=== PATIENT | female | born 1945 | race Two or more races ===

== ENCOUNTER → 2016-08-31 | Outpatient (REF) | payer MEDICARE ==
[2016-08-31 22:00] LABS: MICROSCOPIC INDICATED? MAN YES (NO)
[2016-08-31 22:31] LABS: BACTERIA, URINE NONE SEEN; HYALINE CAST, URINE NONE SEEN /lpf (0-1); SQUAMOUS EPITHELIAL CELL URINE MOD AMOUNT /hpf (SMALL AMT); WBC, URINE NONE SEEN /hpf (0-3)
[2016-08-31 22:34] LABS: MICROSCOPIC EXAM PERFORMED
== END ==
LOC: M SMT 17:27
PROVIDERS: ATTEND Nurse Practitioner Women's Health
DX: Z85.51 Personal history of malignant neoplasm of bladder (principal); F17.210 Nicotine dependence, cigarettes, uncomplicated; Z79.899 Other long term (current) drug therapy
CPT/HCPCS: 81000; 87086; G0463

== ENCOUNTER → 2016-11-06 | Outpatient (REF) | payer MEDICARE | LOC: M SMT 14:43 | PROVIDERS: ATTEND Urology | DX: Z08 Encounter for follow-up examination after completed treatment for malignant neoplasm (principal); Z85.51 Personal history of malignant neoplasm of bladder; Z79.899 Other long term (current) drug therapy ==

== ENCOUNTER → 2017-11-19 | Outpatient (REF) | payer MEDICARE | LOC: M SMT 17:05 | DX: Z85.51 Personal history of malignant neoplasm of bladder (principal) | CPT/HCPCS: 88108 ==

== ENCOUNTER → 2018-05-15 | Outpatient (REF) | payer MEDICARE ==
[2018-05-15 18:43] LABS: APPEARANCE, URINE CLEAR (CLEAR); BACTERIA, URINE AUTO NEGATIVE (NEGATIVE); BILIRUBIN, URINE AUTO NEGATIVE (NEGATIVE); BLOOD, URINE BLOOD 1+ (NEGATIVE); COLOR, URINE YELLOW (YELLOW); GLUCOSE, URINE (UA) AUTO NEGATIVE (NEGATIVE); KETONE, URINE AUTO NEGATIVE (NEGATIVE); LEUKOCYTE ESTERASE, URINE AUTO NEGATIVE (NEGATIVE); MUCUS, URINE SMALL (NEGATIVE); NITRITE, URINE AUTO NEGATIVE (NEGATIVE); PROTEIN, URINE AUTO 1+ mg/dL (NEGATIVE); RBC, URINE AUTO 12 /HPF (0-3); SPECIFIC GRAVITY URINE AUTO 1.018 (1.002-1.035); SQUAMOUS EPITHELIAL CELL UR AU 4 /HPF (0-6); UROBILINOGEN, URINE AUTO 0.2 mg/dL (0.0-2.0); WBC, URINE AUTO 1 /HPF (0-3)
== END ==
LOC: M SMT 17:36
PROVIDERS: ATTEND Nurse Practitioner Women's Health
DX: R31.29 Other microscopic hematuria (principal); Z85.51 Personal history of malignant neoplasm of bladder
CPT/HCPCS: 81001; 87086; 88108; G0463

== ENCOUNTER → 2018-06-11 | Outpatient (CLI) | payer MEDICARE ==
[~2018-06-11] MED LIST: ISOVUE-370 76% 100ML VIAL (Q9967) As Ordered ONE
--- NOTE | 2018-06-11 17:15 | REP ---
CT abdomen and pelvis without and with IV contrast: CT urogram. History: History of bladder cancer. No comparison imaging. Microscopic hematuria. CT contrast dose: 100 ml of intravenous Isovue 370 is administered. Findings: Preliminary digital warehouse selector radiograph shows an unremarkable bowel gas pattern. The lung bases are clear on axial CT images. The liver and the spleen are normal in size and homogeneous in texture on pre and postcontrast CT imaging. No focal hepatic lesion is seen. No adrenal lesion is seen on either side. Pancreas shows no evidence of mass or cyst. The gallbladder shows no abnormality. No retroperitoneal mass or adenopathy is observed. There is left colonic diverticulosis without CT evidence of diverticulitis. The appendix is not seen but no inflammatory changes are seen at the ileocecal valve or cecal tip. The kidneys enhance symmetrically. No renal mass lesion is observed. There is no evidence of hydronephrosis. No intrarenal calculus is seen on either side. Delayed scan images show no filling defect in the collecting system of either kidney. Ureters describe a normal course to the urinary bladder. No obvious bladder mass lesion is observed. Bladder is only minimally distended during the scan even after delayed images. No bony destructive lesion is seen. No abdominal wall defect is observed. Impression: Negative CT urography. Left colonic diverticulosis is noted. Electronically Signed by Alex Jarrett MD 06/11/2018 05:23 P
== END ==
LOC: M RAD 13:58
PROVIDERS: ATTEND Nurse Practitioner Women's Health
DX: K57.30 Diverticulosis of large intestine without perforation or abscess without bleeding (principal); R31.29 Other microscopic hematuria; Z85.51 Personal history of malignant neoplasm of bladder
CPT/HCPCS: 74178; Q9967

== ENCOUNTER → 2019-10-09 | Outpatient (REF) | payer MEDICARE ==
[2019-11-12 11:54] LABS: APPEARANCE, URINE CLEAR (CLEAR); BACTERIA, URINE AUTO 1+ (NEGATIVE); BILIRUBIN, URINE AUTO NEGATIVE (NEGATIVE); BLOOD, URINE BLOOD 1+ (NEGATIVE); COLOR, URINE YELLOW (YELLOW); GLUCOSE, URINE (UA) AUTO NEGATIVE (NEGATIVE); KETONE, URINE AUTO NEGATIVE (NEGATIVE); LEUKOCYTE ESTERASE, URINE AUTO NEGATIVE (NEGATIVE); MUCUS, URINE SMALL (NEGATIVE); NITRITE, URINE AUTO NEGATIVE (NEGATIVE); PROTEIN, URINE AUTO NEGATIVE (NEGATIVE); RBC, URINE AUTO 1 /HPF (0-3); SPECIFIC GRAVITY URINE AUTO 1.004 (1.002-1.035); SQUAMOUS EPITHELIAL CELL UR AU 1 /HPF (0-6); UROBILINOGEN, URINE AUTO 0.2 mg/dL (0.0-2.0); WBC, URINE AUTO 0 /HPF (0-3)
== END ==
LOC: M SMT 09:27
PROVIDERS: ATTEND Nurse Practitioner Women's Health
DX: C67.9 Malignant neoplasm of bladder, unspecified (principal)
CPT/HCPCS: 81001; 87086; 88108; G0463

== ENCOUNTER → 2020-11-09 | Outpatient (REF) | payer MEDICARE ==
[2020-11-09 13:51] LABS: APPEARANCE, URINE CLEAR (CLEAR); BACTERIA, URINE AUTO NEGATIVE (NEGATIVE); BILIRUBIN, URINE AUTO NEGATIVE (NEGATIVE); BLOOD, URINE BLOOD 1+ (NEGATIVE); COLOR, URINE STRAW (YELLOW); GLUCOSE, URINE (UA) AUTO NEGATIVE (NEGATIVE); KETONE, URINE AUTO NEGATIVE (NEGATIVE); LEUKOCYTE ESTERASE, URINE AUTO NEGATIVE (NEGATIVE); NITRITE, URINE AUTO NEGATIVE (NEGATIVE); PROTEIN, URINE AUTO NEGATIVE (NEGATIVE); RBC, URINE AUTO 1 /HPF (0-3); SPECIFIC GRAVITY URINE AUTO 1.004 (1.002-1.035); SQUAMOUS EPITHELIAL CELL UR AU 2 /HPF (0-6); UROBILINOGEN, URINE AUTO 0.2 mg/dL (0.0-2.0); WBC, URINE AUTO 0 /HPF (0-3)
== END ==
LOC: M SMT 12:59
PROVIDERS: ATTEND Nurse Practitioner Women's Health
DX: Z85.51 Personal history of malignant neoplasm of bladder (principal)